=== PATIENT | male | born 1980 | race Caucasian/White ===

== ENCOUNTER 2023-01-14 14:53 | Outpatient (REF) | payer MEDICAID, SELFPAY ==
[2023-01-14 18:47] LABS: Abs Immature Grans 0.03 10^3/uL (0.0-0.06); Absolute Basophil Count 0.06 10^3/uL (0.0-0.2); Absolute Eosinophil Count 0.46 10^3/uL (0.0-0.7); Absolute Lymphocyte Count 2.73 10^3/uL (1.2-3.4); Absolute Monocyte Count 0.69 10^3/uL (0.1-0.8); Absolute Neutrophil Count 6.64 10^3/uL (1.2-6.7); Basophils % 0.6; Eosinophils % 4.3; HCT 39.2 % (40.0-50.0); HGB 13.1 g/dL (13.5-17.5); Immature Grans % 0.3; Lymphocytes % 25.7; MCH 28.5 pg (27.0-33.0); MCHC 33.4 % (32.0-36.0); MCV 85 fL (80-95); MPV 11.4 fL (8.0-11.0); Monocytes % 6.5; Neutrophils % 62.6; Platelet Count 279 10^3/uL (130-400); RBC 4.59 10^6/uL (4.36-5.78); RDW 13.4 % (11.8-14.1); RDW-SD 42.1 fL; WBC 10.61 10^3/uL (4.4-10.8)
[2023-01-14 19:01] LABS: ALT 20 U/L (16-63); AST 14 U/L (15-37); Albumin 3.1 g/dL (3.4-5.0); Alkaline Phosphatase 111 U/L (46-116); Anion Gap 6.5 mmol/L (3-11); BUN 25 mg/dL (7-18); Bilirubin, Total 0.2 mg/dL (0.2-1.0); CO2 28.5 mmol/L (21.0-32.0); CREATININE 1.1 mg/dL (0.70-1.30); Calcium 8.8 mg/dL (8.5-10.1); Calculated LDL 210 mg/dL (<100); Chloride 106 mmol/L (98-107); Cholesterol 318 mg/dL (<200); Estimated GFR 85.42 (mL/min/1.73m2); Glucose 285 mg/dL (74-106); HDL Cholesterol 39 mg/dL (40-60); Potassium 4.7 mmol/L (3.5-5.1); Sodium 141 mmol/L (136-145); TSH (W/Ref FT4) 2.17 uIU/mL (0.36-3.74); Total Protein 6.3 g/dL (6.4-8.2); Triglyceride 348 mg/dL (<150)
== END 2023-01-14 14:54 | disposition home or self-care (01) ==
LOC: NCHCN 14:53
PROVIDERS: Visit Provider Family Medicine
DX: Z00.00 Encounter for general adult medical examination without abnormal findings (principal); E11.8 Type 2 diabetes mellitus with unspecified complications; E78.5 Hyperlipidemia, unspecified
CPT/HCPCS: 80053; 80061; 84443; 85025

== ENCOUNTER 2023-08-12 14:21 | Outpatient (REF) | payer MEDICAID, SELFPAY ==
[2023-08-12 14:48] LABS: ESR 42 mm/hr (0-15)
[2023-08-12 14:50] LABS: Abs Immature Grans 0.07 10^3/uL (0.0-0.06); Absolute Basophil Count 0.05 10^3/uL (0.0-0.2); Absolute Eosinophil Count 0.47 10^3/uL (0.0-0.7); Absolute Lymphocyte Count 2.21 10^3/uL (1.2-3.4); Absolute Monocyte Count 0.66 10^3/uL (0.1-0.8); Absolute Neutrophil Count 6.64 10^3/uL (1.2-6.7); Basophils % 0.5; Eosinophils % 4.7; HCT 37.3 % (40.0-50.0); HGB 12.1 g/dL (13.5-17.5); Immature Grans % 0.7; Lymphocytes % 21.9; MCH 27.4 pg (27.0-33.0); MCHC 32.4 % (32.0-36.0); MCV 85 fL (80-95); MPV 10.6 fL (8.0-11.0); Monocytes % 6.5; Neutrophils % 65.7; Platelet Count 370 10^3/uL (130-400); RBC 4.41 10^6/uL (4.36-5.78); RDW 13.4 % (11.8-14.1); RDW-SD 41.7 fL
[2023-08-12 15:17] LABS: ALT 28 U/L (16-63); AST 21 U/L (15-37); Albumin 2.7 g/dL (3.4-5.0); Alkaline Phosphatase 103 U/L (46-116); Anion Gap 8.3 mmol/L (3-11); BUN 28 mg/dL (7-18); Bilirubin, Total 0.2 mg/dL (0.2-1.0); CO2 25.7 mmol/L (21.0-32.0); CREATININE 1.2 mg/dL (0.70-1.30); Calculated LDL 220 mg/dL (<100); Chloride 106 mmol/L (98-107); Cholesterol 343 mg/dL (<200); Estimated GFR 76.48 (mL/min/1.73m2); Glucose 334 mg/dL (74-106); HDL Cholesterol 52 mg/dL (40-60); Potassium 4.4 mmol/L (3.5-5.1); Sodium 140 mmol/L (136-145); Total Protein 6.1 g/dL (6.4-8.2); Triglyceride 358 mg/dL (<150)
[2023-08-16 13:03] LABS: IgA 129 mg/dL (85-499); Interpretation (See Note); Tissue Transglutaminase IgA <4.0 CU (<20.0)
== END 2023-08-12 14:22 | disposition home or self-care (01) ==
LOC: NCHCN 14:21
PROVIDERS: Visit Provider Family Medicine
DX: E78.5 Hyperlipidemia, unspecified (principal); R19.7 Diarrhea, unspecified; R79.89 Other specified abnormal findings of blood chemistry; R70.0 Elevated erythrocyte sedimentation rate
CPT/HCPCS: 80053; 80061; 82784; 83516; 85652; 85025

== ENCOUNTER 2023-09-21 20:40 | Emergency (ER) | payer SELFPAY ==
[2023-09-21 20:45] VITALS: BP 205/89; PULSE 88; RESP 16; TEMP 37.1; O2SAT 98
[2023-09-21 21:11] LABS: Abs Immature Grans 0.03 10^3/uL (0.0-0.06); Absolute Basophil Count 0.07 10^3/uL (0.0-0.2); Absolute Eosinophil Count 0.43 10^3/uL (0.0-0.7); Absolute Lymphocyte Count 2.71 10^3/uL (1.2-3.4); Absolute Neutrophil Count 5.66 10^3/uL (1.2-6.7); Basophils % 0.7; Eosinophils % 4.5; HGB 11.6 g/dL (13.5-17.5); Immature Grans % 0.3; Lymphocytes % 28.5; MCH 27.4 pg (27.0-33.0); MCHC 32.2 % (32.0-36.0); MCV 85 fL (80-95); MPV 8.7 fL (8.0-11.0); Monocytes % 6.3; Neutrophils % 59.7; Platelet Count 317 10^3/uL (130-400); RBC 4.24 10^6/uL (4.36-5.78); RDW 14.3 % (11.8-14.1)
--- NOTE | 2023-09-21 21:11 | ED.GENADUL_ITS ---
Discharge Plan Discharge Details Chief Complaint: Vascular Primary Care Provider: Binh Draper ED Provider: Gerri Yu Home Meds and New Rx's Prescriptions: No Action Levemir FlexPen 100 unit/mL (3 mL) insulin pen 30 unit subcut QHS simvastatin 20 mg tablet 20 mg PO QHS Jardiance 25 mg tablet 25 mg PO DAILY varenicline 1 mg tablet 1 mg PO DAILY AM metformin 1,000 mg tablet 1,000 mg PO BID HPI General Date/Time Provider Initiated Documentation: 09/21/23 20:51 . HPI Narrative: Humphrey is a 43-year-old male with T2DM who presents to the emergency department today for evaluation of bilateral pedal edema. He reports that he woke up 1 day 2 weeks ago with his legs swollen from his distal thigh down to his feet. This has remained unchanged since onset. He denies distal numbness/tingling or pain other than tightness associated with the swelling. He denies recent fever/chills, chest pain, shortness of breath, abdominal pain other than chronic abdominal cramping/diarrhea/bloating that is currently being worked up by PCP, change in bladder function, skin changes, change in PO intake. No change in digestive symptoms since onset of pedal edema. He does elevate his legs at night and says that his legs do appear more normal in the morning, but worsens throughout the day. Related Data Home Medications Medication Instructions Recorded Confirmed empagliflozin 25 mg tablet 25 mg PO DAILY 09/21/23 09/21/23 (Jardiance) insulin detemir U-100 100 unit/mL 30 unit subcut QHS 09/21/23 09/21/23 (3 mL) subcutaneous pen (Levemir FlexPen) metformin 1,000 mg tablet 1,000 mg PO BID 09/21/23 09/21/23 simvastatin 20 mg tablet 20 mg PO QHS 09/21/23 09/21/23 varenicline 1 mg tablet 1 mg PO DAILY AM 09/21/23 09/21/23 Allergies Allergy/AdvReac Type Severity Reaction Status Date / Time No Known Allergies Allergy Unverified 09/21/23 20:44 General Stated Complaint: Vascular PAUL: 3 Review of Systems Narrative: see HPI Exam Const General: cooperative, healthy appearing, comfortable and no acute distress Neck Neck: normal visual inspection Resp Effort & Inspection: normal respiratory effort and able to speak in complete sentences Auscultation: clear to auscultation bilaterally Cardio Jugular venous pressure: no JVD Rhythm: regular rhythm GI Inspection: normal to inspection Palpation: No ascites Extrem Right lower extremity: edema Details: pitting and 2+; no cyanosis Left lower extremity: edema Details: pitting and 2+; no cyanosis Course Vital Signs Vital signs: Vital Signs Temperature 37.1 C 09/21/23 20:45 Pulse 88 09/21/23 20:45 Respiratory Rate 16 09/21/23 20:45 Blood Pressure 205/89 H 09/21/23 20:45 Pulse Oximetry 98 09/21/23 20:45 Temperature 37.1 C 09/21/23 20:45 Temperature Source Temporal Artery Scan 09/21/23 20:45 Pulse 88 09/21/23 20:45 Respiratory Rate 16 09/21/23 20:45 Respiratory Effort Normal, Non-Labored 09/21/23 20:47 Blood Pressure 205/89 H 09/21/23 20:45 Blood Pressure Position Sitting 09/21/23 20:45 Pulse Oximetry 98 09/21/23 20:45 Oxygen Delivery Method Room Air 09/21/23 20:45 Oxygen Flow Rate 0 09/21/23 20:45 Pain Level 7 09/21/23 20:45 Medical Decision Making Humphrey is a 43-year-old male with T2DM who presents to the emergency department today for evaluation of bilateral pedal edema. He reports that he woke up 1 day 2 weeks ago with his legs swollen from his distal thigh down to his feet. This has remained unchanged since onset. He denies distal numbness/tingling or pain other than tightness associated with the swelling. He denies recent fever/chills, chest pain, shortness of breath, abdominal pain other than chronic abdominal cramping/diarrhea/bloating that is currently being worked up by PCP, change in bladder function, skin changes, change in PO intake. No change in digestive symptoms since onset of pedal edema. He does elevate his legs at nig ht and says that his legs do appear more normal in the morning, but worsens throughout the day. Physical exam remarkable for bilateral pedal edema from the knees down to the feet, greatest in the shins and dorsum of feet. Sensation is grossly intact to legs. No obvious wounds. Pitting edema is noted. Able to palpate dorsalis pedis pulses. Patient is alert and interactive, in no acute distress. DDx includes but is not limited to: RV dysfunction/heart failure, cirrhosis, venous insufficiency, renal dysfunction, malabsorption, sodium or fluid overload, Lymphatic obstruction, thyroid dysfunction I independently interpreted the following tests: EKG reassuring, normal sinus rhythm rate 73, normal DE and QT intervals, no T wave inversions concerning for RV dysfunction noted or changes consistent with acute ischemia. CBC, CMP, TSH, magnesium reassuring, unchanged from previous on 08/12/2023. Chest x-ray reassuring, no obvious infiltrate or cardiomegaly noted; this was confirmed by [facility] radiologist. Overall workup today very reassuring, unclear etiology of peripheral edema. Recommend elevation of the legs for comfort, further evaluation by PCP for management of peripheral edema. Reviewed red flags indicate need for return for emergency care. He is agreeable to plan of care. Lab Data Labs: All Laboratory Tests Range/Units 09/21/23 21:05 WBC (4.4-10.8) 10^3/uL 9.50 RBC (4.36-5.78) 10^6/uL 4.24 L Hgb (13.5-17.5) g/dL 11.6 L Hct (40.0-50.0) % 36.0 L MCV (80-95) fL 85 MCH (27.0-33.0) pg 27.4 MCHC (32.0-36.0) % 32.2 RDW (11.8-14.1) % 14.3 H Plt Count (130-400) 10^3/uL 317 MPV (8.0-11.0) fL 8.7 Immature Gran % 0.3 Neutrophils % 59.7 Lymphocytes % 28.5 Monocytes % 6.3 Eosinophils % 4.5 Basophils % 0.7 Nucleated RBC % (0.0-0.3) % 0.0 Absolute Neutrophils (1.2-6.7) 10^3/uL 5.66 Absolute Lymphocytes (1.2-3.4) 10^3/uL 2.71 Absolute Monocytes (0.1-0.8) 10^3/uL 0.60 Absolute Eosinophils (0.0-0.7) 10^3/uL 0.43 Absolute Basophils (0.0-0.2) 10^3/uL 0.07 Sodium (136-145) mmol/L 143 Potassium (3.5-5.1) mmol/L 4.0 Chloride (98-107) mmol/L 108 H Carbon Dioxide (21.0-32.0) mmol/L 27.4 Anion Gap (3-11) mmol/L 7.6 BUN (7-18) mg/dL 22 H Creatinine (0.70-1.30) mg/dL 1.4 H Est GFR (CKD-EPI 2020) (mL/min/1.73m2) 63.56 Glucose (74-106) mg/dL 210 H Calcium (8.5-10.1) mg/dL 8.6 Magnesium (1.8-2.4) mg/dL 1.9 Total Bilirubin (0.2-1.0) mg/dL 0.2 AST (15-37) U/L 17 ALT (16-63) U/L 27 Alkaline Phosphatase (46-116) U/L 73 Total Protein (6.4-8.2) g/dL 6.4 Albumin (3.4-5.0) g/dL 2.6 L TSH (0.36-3.74) uIU/mL 1.26 Quality:SDOH Health Related Social Needs: No Data to Display [facility] Social History Smoking/Tobacco Use Status: Current every day Tobacco Type: cigarettes Smoking risk assessment performed?: Yes Alcohol Intake: never Drug use: Never Substance use type: does not use Housing: house Do you feel safe at home: Yes Do you feel safe in your relationship?: Yes
[2023-09-21 21:29] LABS: ALT 27 U/L (16-63); AST 17 U/L (15-37); Albumin 2.6 g/dL (3.4-5.0); Alkaline Phosphatase 73 U/L (46-116); Anion Gap 7.6 mmol/L (3-11); BUN 22 mg/dL (7-18); Bilirubin, Total 0.2 mg/dL (0.2-1.0); CO2 27.4 mmol/L (21.0-32.0); CREATININE 1.4 mg/dL (0.70-1.30); Calcium 8.6 mg/dL (8.5-10.1); Chloride 108 mmol/L (98-107); Estimated GFR 63.56 (mL/min/1.73m2); Glucose 210 mg/dL (74-106); Magnesium 1.9 mg/dL (1.8-2.4); Sodium 143 mmol/L (136-145); Total Protein 6.4 g/dL (6.4-8.2)
--- NOTE | 2023-09-21 21:30 | RT.EKG_ITS ---
APPROVED REPORT Exam: Resting ECG Reason for Exam: evaluation of RV function Patient Location: E HR:73 bpm ECG Measurements Heart Rate 73 AXIS ND 153 P 67 QRSd 77 QRS 12 QT 389 T 42 QTc 430 Conclusion Sinus rhythm...normal P axis, V-rate 60- 99
--- NOTE | 2023-09-21 21:30 | DI.RAD_ITS ---
Exam(s) XR CHEST 2V PA LATERAL EXAM: XR CHEST 2V PA LATERAL CLINICAL HISTORY: r/o CHF TECHNIQUE: 2D digital imaging was performed. Two views. COMPARISON: No exams were available for comparison FINDINGS: HEART: Normal size. Aorta: Not dilated. PULMONARY VASCULATURE: Normal. LUNGS: Suboptimally inflated but clear. PLEURAL SPACE: No pleural effusion or pneumothorax. BONE:Unremarkable for age. Soft tissues: Unremarkable. IMPRESSION: No acute abnormality. DATA REPOSITORY: RADIATION DOSE DELIVERED:
[2023-09-21 21:36] LABS: TSH (W/Ref FT4) 1.26 uIU/mL (0.36-3.74)
[2023-09-21 21:47] VITALS: RESP 16
--- NOTE | 2023-09-21 23:37 | DI.VRAD_ITS ---
PROCEDURE INFORMATION: Exam: XR Chest Exam date and time: 09/21/2023 10:48 PM Age: 43 years old Clinical indication: Other: Bilateral edema TECHNIQUE: Imaging protocol: Radiologic exam of the chest. Views: 2 views. Total images: 2 COMPARISON: No relevant prior studies available. FINDINGS: Lungs: Lungs are clear without consolidation. No vascular congestion. Pulmonary makayla: Unremarkable contours. Pleural spaces: No pleural effusion. No pneumothorax. Heart/Mediastinum: Unremarkable contours. No cardiomegaly. Bones/joints: Unremarkable. Intraperitoneal space: Visualized upper abdomen is unremarkable. IMPRESSION: No acute findings. Dictated and Authenticated by: Prasad Lyon MD. Ordering:CHELY Talley MD
[2023-09-21 23:47] VITALS: PULSE 80; RESP 18; O2SAT 98
== END 2023-09-21 23:48 | disposition home or self-care (01) ==
PROVIDERS: Emergency Provider Nurse Practitioner Family; PCP Family Medicine
DX: R60.0 Localized edema (principal); R22.43 Localized swelling, mass and lump, lower limb, bilateral; E11.9 Type 2 diabetes mellitus without complications
CPT/HCPCS: 80053; 93005; 99283; 71046; 83735; 84443; 85025; 93010

== ENCOUNTER 2023-12-07 16:06 | Outpatient (REF) | payer BC, SELFPAY ==
[2023-12-07 20:31] LABS: Abs Immature Grans 0.04 10^3/uL (0.0-0.06); Absolute Basophil Count 0.08 10^3/uL (0.0-0.2); Absolute Eosinophil Count 0.42 10^3/uL (0.0-0.7); Absolute Lymphocyte Count 2.08 10^3/uL (1.2-3.4); Absolute Monocyte Count 0.63 10^3/uL (0.1-0.8); Basophils % 0.7 %; Eosinophils % 3.5 %; HCT 40.4 % (40.0-50.0); HGB 13.3 g/dL (13.5-17.5); Immature Grans % 0.3 %; Lymphocytes % 17.4 %; MCH 27.9 pg (27.0-33.0); MCHC 32.9 % (32.0-36.0); MCV 85 fL (80-95); MPV 10.4 fL (8.0-11.0); Monocytes % 5.3 %; Neutrophils % 72.8 %; Platelet Count 406 10^3/uL (130-400); RBC 4.77 10^6/uL (4.36-5.78); RDW 14.6 % (11.8-14.1); RDW-SD 45.1 fL; WBC 11.93 10^3/uL (4.4-10.8)
[2023-12-07 20:32] LABS: Absolute Neutrophil Count 8.69 10^3/uL (1.2-6.7)
[2023-12-07 20:45] LABS: ALT 25 U/L (16-63); AST 24 U/L (15-37); Albumin 2.5 g/dL (3.4-5.0); Alkaline Phosphatase 56 U/L (46-116); Anion Gap 8.2 mmol/L (3-11); BUN 20 mg/dL (7-18); Bilirubin, Total 0.5 mg/dL (0.2-1.0); CO2 25.8 mmol/L (21.0-32.0); CREATININE 1.2 mg/dL (0.70-1.30); Calcium 8.3 mg/dL (8.5-10.1); Chloride 108 mmol/L (98-107); Estimated GFR 76.48 (mL/min/1.73m2); Glucose 144 mg/dL (74-106); Potassium 3.6 mmol/L (3.5-5.1); Sodium 142 mmol/L (136-145); Total Protein 5.5 g/dL (6.4-8.2)
[2023-12-07 20:57] LABS: COMMENT (LAB VIEW ONLY) 134.23 mg/dL
== END 2023-12-07 16:07 | disposition home or self-care (01) ==
LOC: NCHCN 16:06
PROVIDERS: PCP Family Medicine; Visit Provider Family Medicine
DX: E11.9 Type 2 diabetes mellitus without complications (principal)
CPT/HCPCS: 80053; 82043; 82570; 85025

== ENCOUNTER 2024-02-15 13:04 | Outpatient (REF) | payer BC, SELFPAY ==
[2024-02-15 14:43] LABS: Anion Gap 5.4 mmol/L (3-11); BUN 27 mg/dL (7-18); CO2 29.6 mmol/L (21.0-32.0); CREATININE 1.7 mg/dL (0.70-1.30); Calcium 8.7 mg/dL (8.5-10.1); Chloride 109 mmol/L (98-107); Estimated GFR 50.35 (mL/min/1.73m2); Glucose 104 mg/dL (74-106); Potassium 4.4 mmol/L (3.5-5.1); Sodium 144 mmol/L (136-145)
== END 2024-02-15 13:05 | disposition home or self-care (01) ==
LOC: NCHCN 13:04
PROVIDERS: PCP Family Medicine; Visit Provider Family Medicine
DX: R60.0 Localized edema (principal)
CPT/HCPCS: 80048

== ENCOUNTER 2024-04-27 17:52 | Outpatient (REF) | payer BC, SELFPAY ==
[2024-04-27 18:08] LABS: ALT 38 U/L (16-63); AST 34 U/L (15-37); Albumin 1.8 g/dL (3.4-5.0); Alkaline Phosphatase 94 U/L (46-116); Anion Gap 7.4 mmol/L (3-11); BUN 31 mg/dL (7-18); Bilirubin, Total 0.18 mg/dL (0.2-1.0); CO2 26.6 mmol/L (21.0-32.0); CREATININE 2.2 mg/dL (0.70-1.30); Chloride 111 mmol/L (98-107); Estimated GFR 36.95 (mL/min/1.73m2); Glucose 218 mg/dL (74-106); Potassium 3.9 mmol/L (3.5-5.1); Sodium 145 mmol/L (136-145)
== END 2024-04-27 17:53 | disposition home or self-care (01) ==
LOC: NCHCN 17:52
PROVIDERS: PCP Family Medicine; Visit Provider Family Medicine
DX: R60.1 Generalized edema (principal)
CPT/HCPCS: 80053

== ENCOUNTER 2024-09-06 12:43 | Outpatient (REF) | payer BC, SELFPAY ==
[2024-09-06 14:33] LABS: HCT 35.9 % (40.0-50.0); HGB 11.7 g/dL (13.5-17.5); MCH 27.5 pg (27.0-33.0); MCHC 32.6 % (32.0-36.0); MCV 85 fL (80-95); Platelet Count 387 10^3/uL (130-400); RBC 4.25 10^6/uL (4.36-5.78); RDW 15.9 % (11.8-14.1); RDW-SD 48.8 fL; WBC 11.01 10^3/uL (4.4-10.8)
[2024-09-06 17:33] LABS: ALT 43 U/L (16-63); AST 45 U/L (15-37); Albumin 1.9 g/dL (3.4-5.0); Alkaline Phosphatase 95 U/L (46-116); Anion Gap 10.3 mmol/L (3-11); BUN 43 mg/dL (7-18); Bilirubin, Total 0.17 mg/dL (0.2-1.0); CO2 24.7 mmol/L (21.0-32.0); CREATININE 2.7 mg/dL (0.70-1.30); Calcium 8.1 mg/dL (8.5-10.1); Chloride 113 mmol/L (98-107); Estimated GFR 28.72 (mL/min/1.73m2); Glucose 117 mg/dL (74-106); Sodium 148 mmol/L (136-145); TSH (W/Ref FT4) 2.29 uIU/mL (0.36-3.74)
[2024-09-10 13:43] LABS: Testosterone, Total 425 ng/dL (240-950)
== END 2024-09-06 12:44 | disposition home or self-care (01) ==
LOC: NCHCN 12:43
PROVIDERS: PCP Family Medicine; Visit Provider Family Medicine
DX: N18.32 Chronic kidney disease, stage 3b (principal); R53.83 Other fatigue
CPT/HCPCS: 80053; 84402; 84403; 85027; 84443

== ENCOUNTER 2024-12-07 09:56 | Outpatient (REF) | payer BC, SELFPAY ==
[2024-12-07 15:24] LABS: COMMENT (LAB VIEW ONLY) 83.05 mg/dL
== END 2024-12-07 09:57 | disposition home or self-care (01) ==
LOC: NCHCN 09:56
PROVIDERS: PCP Family Medicine; Visit Provider Family Medicine
DX: E11.21 Type 2 diabetes mellitus with diabetic nephropathy (principal)
CPT/HCPCS: 82043; 82570

== ENCOUNTER 2025-03-18 11:07 | Emergency (ER) | payer BC, SELFPAY ==
[2025-03-18 11:16] VITALS: BP 171/101; PULSE 82; RESP 18; TEMP 36.9; O2SAT 98
--- NOTE | 2025-03-18 11:45 | DI.RAD_ITS ---
Exam(s) XR RIBS LT W PA LAT CHEST EXAM: XR RIBS LT W PA LAT CHEST CLINICAL HISTORY: left nipple line pain at 8-9 ribs, trauma TECHNIQUE: 2D digital imaging was performed. Six images are obtained. COMPARISON: CR,XR XR CHEST 2V PA LATERAL from 09/21/2023 FINDINGS: MEDIASTINUM: Normal. HEART: Normal. PULMONARY VASCULATURE: Normal. LUNGS: The lung lewis appears stable. There are no new focal consolidating infiltrates present. PLEURAL SPACE: No pleural effusion or pneumothorax. BONE:Within normal limits for the patient's age. LEFT RIBS: Normal. OTHER FINDINGS:Normal. IMPRESSION: 1. No acute pulmonary findings. 2. Unremarkable left ribs. DATA REPOSITORY: RADIATION DOSE DELIVERED:
[2025-03-18] MEDS: Lidocaine 5% Patch 1 PATCH TP (11:53)
--- NOTE | 2025-03-18 13:00 | ED.GENADUL_ITS ---
Discharge Plan Disposition Patient Disposition: Home Condition: Stable Discharge Details Clinical Impression: Chest wall injury Primary Care Provider: Binh Draper ED Provider: Marnie Esteves Home Meds and New Rx's Prescriptions: New cyclobenzaprine 10 mg tablet 10 mg PO TID PRNQty: 10 0RF lidocaine [DermacinRx Lidocan] 5 % adhesive patch,medicated 1 patch topical DAILY Qty: 15 0RF Rx Instructions: leave on most painful area for up to 12 hrs Continued torsemide 20 mg tablet Patient Comments: TAKE 1 TABLET BY MOUTH EVERY DAY diltiazem HCl 120 mg capsule,extended release 24hr PO Patient Comments: TAKE 1 CAPSULE BY MOUTH EVERY DAY escitalopram oxalate 20 mg tablet Patient Comments: TAKE 1 TABLET EVERY DAY BY ORAL ROUTE IN THE MORNING. insulin glargine [Lantus Solostar U-100 Insulin] 100 unit/mL (3 mL) insulin pen SUBCUT simvastatin 20 mg tablet 20 mg PO QHS varenicline tartrate 1 mg tablet 1 mg PO DAILY AM Discharge Instructions Instructions: Rib Fracture or Bruised Rib ED Additional Instructions: Make sure you are taking at least 6-12 full inhalations in accelerations daily so you do not develop pneumonia You may apply Lidoderm patches 12 hours on 12 hours off as needed for pain You may take the muscle relaxant at night to help you sleep Motrin Tylenol as needed for discomfort Pressing a pillow to your chest wall can help you go from sitting to standing and when you are taking an inhalation can help relieve the pain Referrals: Binh Draper MD [Primary Care Provider, Medicine] Discharge Data Discharge Date/Time-TO BE ENTERED AT DEPARTURE: 03/18/25 13:47 HPI General Date/Time Provider Initiated Documentation: 03/18/25 11:19 . HPI Narrative: This 44-year-old male presents after slip and fall onto left side yesterday evening. States he has pain to the left rib cage denies any additional injuries or history of a coagulopathy. Denies any head injury. Pain worse with deep breathing. Denies any abdominal pain nausea or vomiting. Related Data Home Medications ?Medication ?Instructions ?Recorded ?Confirmed simvastatin 20 mg tablet 20 mg PO QHS 09/21/23 varenicline tartrate 1 mg tablet 1 mg PO DAILY AM 12/0903/18/25 cyclobenzaprine 10 mg tablet 10 mg PO TID PRN #10 tabs 03/18/25 diltiazem HCl 120 mg mg PO 03/18/25 capsule,extended release 24 hr escitalopram oxalate 20 mg tablet mg 03/18/25 insulin glargine 100 unit/mL (3 unit subcut 03/18/25 mL) subcutaneous pen (Lantus Solostar U-100 Insulin) lidocaine 5 % topical patch 1 patch topical DAILY #15 ea 03/18/25 (DermacinRx Lidocan) torsemide 20 mg tablet mg 03/18/25 Previous Rx's ?Medication ?Instructions ?Recorded cyclobenzaprine 10 mg tablet 10 mg PO TID PRN #10 tabs 03/18/25 lidocaine 5 % topical patch 1 patch topical DAILY #15 ea 03/18/25 (DermacinRx Lidocan) Allergies Allergy/AdvReac Type Severity Reaction Status Date / Time No Known Allergies Allergy Unverified 03/18/25 11:20 General Stated Complaint: Orthopedic PAUL: 3 Exam Narrative Exam Narrative: 44-year-old male no acute distress no visible sign of head injury GCS 15, reproducible tenderness around 8 through 10 anterior ribs on the left, lungs are clear to auscultation no visible sign of trauma specifically no tenderness on entirety of abdominal exam no bruising no tenderness to left wrist or hip lungs are clear to auscultation no crepitus no visible sign of head injury no cervical spine tenderness Course Vital Signs Vital signs: Vital Signs Temperature 36.9 C 03/18/25 11:16 Pulse 82 03/18/25 11:16 Respiratory Rate 18 03/18/25 11:16 Blood Pressure 171/101 H 03/18/25 11:16 Pulse Oximetry 98 03/18/25 11:16 Temperature 36.9 C 03/18/25 11:16 Pulse 82 03/18/25 11:16 Respiratory Rate 18 03/18/25 11:16 Blood Pressure 171/101 H 03/18/25 11:16 Pulse Oximetry 98 03/18/25 11:16 Pain Level 8 03/18/25 11:16 Medical Decision Making 44-year-old male presents with fall and left-sided chest wall pain. Results: Left rib series does not show evidence of acute abnormality per radiology interpretation my review Assessment and plan: Chest x-ray does not show evidence of hemothorax, pneumothorax, or obvious rib fracture patient is hemodynamically stable. He was given Lidoderm patch which does help with pain and muscle relaxants at night as needed. He will continue supportive care with spirometry 6-12 deep inhalations in exhalations daily. Risk of pneumonia reviewed return precautions discussed and patient expressed understanding. REPLACED BY [facility] All Active Problems (Updated 03/18/25 @ 13:01 by ARISTIDES Lucero) Chest wall injury (Acute) Social History Smoking/Tobacco Use Status: Current every day Tobacco Type: cigarettes Smoking risk assessment performed?: Yes Alcohol Intake: never Drug use: Never Substance use type: does not use Housing: house Do you feel safe at home: Yes Do you feel safe in your relationship?: Yes
== END 2025-03-18 13:47 | disposition home or self-care (01) ==
PROVIDERS: Emergency Provider Physician Assistant; PCP Family Medicine
DX: R07.89 Other chest pain (principal)
CPT/HCPCS: 99284; 99283; 71046; 71100